=== PATIENT | female | born 1965 | race Caucasian/White ===

== ENCOUNTER 2020-08-30 18:41 | Emergency (ER) | payer MEDICAID ==
[~2020-08-30] VITALS: Ht 157.5 cm; Wt 59.1 kg
[~2020-08-30 18:41] MED LIST: ASPI-556 PO; INSLAN; INSU100C3 SQ; LISI10TA24 PO; NORT10 PO
[2020-08-30] MEDS ORDERED: INSU100V SQ (18:52)
[2020-08-30] MEDS ORDERED: INSLAN SQ (18:52)
[2020-08-30] MEDS ORDERED: SODIUM CHLORIDE 0.9% 1,000 ML IV ONE (19:30)
[2020-08-30] MEDS ORDERED: DiphenhydrAMINE HCL 50 MG/ML VIAL IVP ONE (19:30)
[2020-08-30] MEDS ORDERED: ACETAMINOPHEN 1000 MG/ISO-OSM 100 ML IV ONE (19:30)
[2020-08-30] MEDS ORDERED: METOCLOPRAMIDE HCL 5 MG/ML 2 ML VIAL IVP ONE (19:30)
[2020-08-30 20:14] LABS: BASOPHILS % (AUTO) 0.4 % (0.0-2.0); HEMATOCRIT 30.4 % (36-46); HEMOGLOBIN 10.5 g/dL (12.0-16.0); LYMPHOCYTES # (AUTO) 1.2 K/uL (1.0-4.8); MEAN CORPUSCULAR HEMOGLOBIN 29.1 pg (26.0-34.0); MEAN CORPUSCULAR HGB CONC 34.7 G/dL (31.0-37.0); MEAN CORPUSCULAR VOLUME 84 fL (80-100); MONOCYTES # (AUTO) 0.3 K/uL (0.1-1.0); MONOCYTES % (AUTO) 5.6 % (2.0-9.0); NEUTROPHILS # (AUTO) 3.1 K/uL (1.8-7.7); PLATELET COUNT (AUTO) 215 K/uL (150-450); RED BLOOD CELL COUNT(AUTO) 3.62 MIL/uL (4.00-5.20); RED CELL DISTRIBUTION WIDTH 13.5 % (11.5-14.5)
[2020-08-30 20:27] LABS: CALCIUM, TOTAL 8.5 mg/dL (8.8-10.5); CREATININE 1.12 mg/dL (0.60-1.30); POTASSIUM 4.4 mmol/L (3.5-5.1)
[2020-08-30 20:34] LABS: BILIRUBIN,TOTAL 0.2 mg/dL (0.1-1.0); TOTAL PROTEIN, SERUM 6.9 g/dL (6.4-8.2)
[2020-08-30 21:32] VITALS: BP 192/99
== END 2020-08-30 21:53 | disposition home or self-care (01) ==
LOC: EMS 18:41
DX: B34.9 Viral infection, unspecified (principal); R51.9 Headache, unspecified; E11.65 Type 2 diabetes mellitus with hyperglycemia; I10 Essential (primary) hypertension; Z79.4 Long term (current) use of insulin; Z20.822 Contact with and (suspected) exposure to COVID-19
CPT/HCPCS: 36415; 70450; 80053; 82962; 85025; 96365; 96375; 99285; J0131; J1200; J2765; J7030; U0003; 96366